=== PATIENT | male | born 1980 | race Hispanic/Latino ===

== ENCOUNTER 2019-05-04 15:01 | Outpatient (CLI) | payer BC ==
--- NOTE | 2019-05-04 17:14 | ULT ---
BILATERAL RENAL ULTRASOUND: Date: 05/04/19 HISTORY: Right flank pain. FINDINGS: The right kidney measures 11.2 cm in length and the left kidney measures 11.6 cm in length. No focal mass or hydronephrosis seen. No shadowing calculi are noted. The urinary bladder is grossly unremarka ble. Incidental note is made of shadowing gallstone. IMPRESSION: 1. Normal renal ultrasound. 2. Cholelithiasis. POS: OFF
== END 2019-05-04 15:02 | disposition home or self-care (01) ==
LOC: SCSULT 15:01
PROVIDERS: ATTEND Family Medicine
DX: R10.9 Unspecified abdominal pain (principal); K80.20 Calculus of gallbladder without cholecystitis without obstruction
CPT/HCPCS: 76770; 87086

== ENCOUNTER 2021-06-29 15:07 | Outpatient (CLI) | payer BC | END 2021-06-29 15:08 | disposition home or self-care (01) | LOC: SCSRAD 15:07 | PROVIDERS: ATTEND Family Medicine | DX: R06.02 Shortness of breath (principal) | CPT/HCPCS: 71046 ==